=== PATIENT | female | born 1980 | race African-American/Black ===

== ENCOUNTER 2017-11-21 21:42 | Emergency (ER) | payer BC, OTHER ==
[2017-11-22] MEDS: ONDANSETRON 4 MG INJ IV ×2 (00:41→04:02)
[2017-11-22] MEDS: morphine 4 MG/ML VIAL IV ×2 (00:42→00:44)
[2017-11-22] MEDS: SOD CHLORIDE 0.9% 1,000 ML IV (00:42)
[2017-11-22 01:00] LABS: ADD MAN DIFF? NO
[2017-11-22 01:05] LABS: ABNORMAL IP MESSAGE 1; BASOPHILS % 0.1 % (0.0-2.0); HEMATOCRIT 43.4 % (37.0-47.0); HEMOGLOBIN 14.6 g/dl (12.0-16.0); LYMPHOCYTES # 0.3 10^3/ul (0.8-2.9); LYMPHOCYTES % 3.6 % (15.0-51.0); MEAN CORPUSCULAR HEMOGLOBIN 29.8 pg (29.0-33.0); MEAN CORPUSCULAR HGB CONC 33.6 g/dl (32.0-37.0); MEAN CORPUSCULAR VOLUME 88.6 fl (82.0-101.0); MEAN PLATELET VOLUME 9.4 fl (7.4-10.4); MONOCYTE # 0.2 10^3/ul (0.3-0.9); MONOCYTES % 2.6 % (0.0-11.0); NEUTROPHIL # 8.4 10^3/ul (1.6-7.5); NEUTROPHILS % 93.5 % (39.0-77.0); PLATELET COUNT 392 10^3/UL (140-415); RED CELL DISTRIBUTION WIDTH 13.6 % (11.5-14.5)
[2017-11-22 01:06] LABS: POSITIVE DIFF @See below
[2017-11-22 01:15] LABS: ADD UMIC YES; UR ASCORBIC ACID NEGATIVE (NEGATIVE); UR BILIRUBIN (Dip) NEGATIVE (NEGATIVE); UR BLOOD (Dip) 1+ mg/dL (NEGATIVE); UR CLARITY SLIGHTLY CLOUDY (CLEAR); UR COLOR YELLOW (YELLOW); UR GLUCOSE (Dip) NEGATIVE (NEGATIVE); UR KETONES (Dip) NEGATIVE (NEGATIVE); UR LEUKOCYTE ESTERASE (Dip) NEGATIVE Leu/ul (NEGATIVE); UR MUCUS FEW /HPF (NONE SEEN); UR NITRITE (Dip) NEGATIVE (NEGATIVE); UR RBC 0 /HPF (0-5); UR SPECIFIC GRAVITY (Dip) 1.027 (1.003-1.030); UR TOTAL PROTEIN (Dip) NEGATIVE (NEGATIVE); UR UROBILINOGEN (Dip) NEGATIVE (NEGATIVE); UR WBC 0 /HPF (0-5)
[2017-11-22 01:24] LABS: ALANINE AMINOTRANSFERASE 31 IU/L (13-69); ALBUMIN 4.7 g/dl (3.3-4.9); ALBUMIN/GLOBULIN RATIO 1.17; ALKALINE PHOSPHATASE 57 IU/L (42-121); ANION GAP 15 (8-16); ASPARTATE AMINO TRANSFERASE 26 IU/L (15-46); BILIRUBIN,INDIRECT 0.3 mg/dl (0-1.1); BILIRUBIN,TOTAL 0.3 mg/dl (0.2-1.3); BLOOD UREA NITROGEN 17 mg/dl (7-20); CALCIUM 9.5 mg/dl (8.4-10.2); CARBON DIOXIDE 24 mmol/L (21-31); CHLORIDE 106 mmol/L (97-110); CREATININE 0.75 mg/dl (0.44-1.00); GLUCOSE 98 mg/dl (70-220); LIPASE 35 U/L (23-300); POTASSIUM 4.5 mmol/L (3.5-5.1); SODIUM 140 mmol/L (135-144); TOTAL PROTEIN 8.7 g/dl (6.1-8.1)
[2017-11-22] MEDS: SOD CHLORIDE 0.9% 100 ML (02:28)
[2017-11-22] MEDS: IOHEXOL 300MG/ML 150 ML BTL (02:28)
== END 2017-11-22 05:00 | disposition home or self-care (01) ==
LOC: FTE 21:42
DX: R11.10 Vomiting, unspecified (principal); R19.7 Diarrhea, unspecified
CPT/HCPCS: 36415; 74177; 80053; 81001; 83690; 85025; 96374; 96376; 99285-25